=== PATIENT | female | born 1950 | race Hispanic/Latino ===

== ENCOUNTER 2017-01-15 04:42 | Inpatient (IN) | payer MEDICARE ==
--- NOTE | 2017-01-15 04:49 | ED PDOC ---
Psych Transfer Clearance - Clearance Statement Clearance Statement: Reviewed vital signs, lab results and transfer papers. Patient clinically stable for psychiatric admission.
[2017-01-15 05:02] VITALS: O2SAT 99
[2017-01-15] MEDS ORDERED: Magnesium Hydroxide Susp 30 ml UD PO PRN (05:19)
[2017-01-15] MEDS ORDERED: Alum-Mag Hydrox-Simethicone Susp (30 mL) PO PRN (05:19)
[2017-01-15] MEDS ORDERED: Bismuth Subsalicylate 262 mg/15 ml Sus (240 ml) PO PRN (05:19)
[2017-01-15 07:20] LABS: SQUAMOUS EPITHIAL 10 /hpf (0-5); URINE BACTERIA OCC (<OCC); URINE BILIRUBIN NEGATIVE (NEGATIVE); URINE BLOOD SMALL (NEGATIVE); URINE CLARITY SLIGHTY-CLOUDY (Clear); URINE COLOR YELLOW (YELLOW); URINE GLUCOSE (UA) NEG (Normal); URINE LEUKOCYTE ESTERASE LARGE Leu/uL (Negative); URINE NITRATE NEGATIVE (NEGATIVE); URINE PROTEIN NEGATIVE (NEGATIVE)
[2017-01-15 07:28] LABS: HEMOGLOBIN 9.9 g/dL (12.0-16.0); MEAN CELL VOLUME 82.1 fl (81.0-99.0); MEAN CORPUSCULAR HEMOGLOBIN 26.1 pg (27.0-31.0); MEAN CORPUSCULAR HGB CONC 31.9 g/dL (33.0-37.0); RBC 3.8 Mil/uL (3.80-5.20); RED CELL DISTRIBUTION WIDTH 14.2 % (11.5-14.5); WHITE BLOOD COUNT 6.7 K/uL (4.8-10.8)
[2017-01-15 07:53] LABS: ALB/GLOB RATIO 1.3 (1.0-2.1); ALBUMIN 4.1 g/dL (3.5-5.0); ALT/SGPT 31 U/L (9-52); AST/SGOT 43 U/L (14-36); BLOOD UREA NITROGEN 11 mg/dl (7-17); GFR AFRICAN-AMERICAN > 60; GFR NON-AFRICAN AMERICAN > 60
[2017-01-15 07:54] LABS: IRON 22 ug/dL (37-170)
[2017-01-15 08:07] LABS: % IRON SATURATION 5 % (20-55); TOTAL IRON BINDING CAPACITY 428 ug/dL (250-450)
[2017-01-15 08:11] LABS: T4 8.02 ug/dl (5.5-11.0)
[2017-01-15 08:25] LABS: FERRITIN 7.3 ng/mL
--- NOTE | 2017-01-15 12:01 | CP.PCM.CON ---
<Jay Patterson - Last Filed: 01/15/17 15:29> History of Present Illness - History of Present Illness History of Present Illness: CC:"I did not want to live" HPI: Patient is a 66 YO Female with no sig PMH presents to [facility] as a transfer from [facility] for suicide attempt. Per patient she was getting evicted from her home and the place that she was suppose to go to told her that they could no longer accommodate her, she also did not have anyone to take care of her pets. About 1/2 hour before the solar engineer came to remove her from her home she tied 3 bungee cord around her neck in an attempt to end her life. She loss consciousness. Patient says she was overwhelmed and did not know how to deal with her situation. pt was initially brought in to [facility] from where she was transferred to [facility]. In [facility] pt had multiple x-ray imaging studies of her cervical spine and soft tissues both of which were found unremarkable. In addition pt was given 1 PO dose of Bactrim. VS stable, afebrile, no leukocytosis. PMH: n/a Surgical hx: tonsillectomy FH: testicular cancer father Social hx: Lives at home, alone with cats, 7 pack year hx quit more then 10 years ago, Denies smoking and illicit use of drugs Home meds: Acetaminophen as needed for join pain Review of Systems - Constitutional Constitutional: absent: Chills, Fever - EENT Eyes: Dry Eye Nose/Mouth/Throat: absent: Facial Pain, Neck Pain - Cardiovascular Cardiovascular: absent: Chest Pain, Dyspnea, Palpitations - Respiratory Respiratory: absent: Dyspnea - Gastrointestinal Gastrointestinal: absent: Abdominal Pain, Constipation, Diarrhea - Genitourinary Genitourinary: absent: Urinary Frequency, Urinary Urgency Additional comments: No dysuria - Reproductive: Female Reproductive:Female: Post Menopausal - Musculoskeletal Musculoskeletal: absent: Joint Swelling, Muscle Weakness - Neurological Neurological: absent: Dizziness, Numbness, Headaches - Psychiatric Psychiatric: Anxiety, Depression, Homicidal Ideation - Endocrine Endocrine: absent: Fatigue, Palpitations, Polydipsia, Polyuria Past Patient History - Past Social History Smoking Status: 7 pack year hx quit more then 10years ago Alcohol: None Drugs: Denies Home Situation {Lives}: Alone - MUSCULOSKELETAL/RHEUMATOLOGICAL Hx Falls: Yes - PSYCHIATRIC Hx Substance Use: No - ANESTHESIA Hx Anesthesia: Yes Hx Anesthesia Reactions: No Meds Allergies/Adverse Reactions: Allergies Allergy/AdvReac Type Severity Reaction Status Date / Time No Known Allergies Allergy Verified 01/15/17 04:47 - Medications Medications: Current Medications Acetaminophen (Tylenol 325mg Tab) 650 mg PO Q4 PRN PRN Reason: Pain, moderate (4-7) Al Hydrox/Mg Hydrox/Simethicone (Maalox Plus 30 Ml) 30 ml PO Q4 PRN PRN Reason: Dyspepsia Bismuth Subsalicylate (Pepto-Bismol) 524 mg PO Q4 PRN PRN Reason: Diarrhea Diphenhydramine HCl (Benadryl) 50 mg PO HS PRN PRN Reason: Sleep Lorazepam (Ativan) 0.5 mg PO HS PRN PRN Reason: Insomnia Stop: 01/29/17 05:20 Lorazepam (Ativan) 0.5 mg PO Q6 PRN PRN Reason: Anixety/Agitation Stop: 01/29/17 05:20 Magnesium Hydroxide (Milk Of Magnesia) 30 ml PO HS PRN PRN Reason: Constipation Physical Exam - Head Exam Head Exam: ATRAUMATIC, NORMAL INSPECTION, NORMOCEPHALIC - Eye Exam Eye Exam: EOMI, Normal appearance - ENT Exam ENT Exam: Mucous Membranes Moist, Normal Exam - Neck Exam Neck exam: Positive for: Full Rom - Respiratory Exam Respiratory Exam: Clear to Auscultation Bilateral, NORMAL BREATHING PATTERN - Cardiovascular Exam Cardiovascular Exam: REGULAR RHYTHM, +S1, +S2 - GI/Abdominal Exam GI & Abdominal Exam: Normal Bowel Sounds, Soft. absent: Distended, Guarding, Rebound, Tenderness Additional comments: Obese abdomen - Extremities Exam Extremities exam: Positive for: full ROM, normal capillary refill, normal inspection, pedal pulses present. Negative for: joint swelling, pedal edema - Psychiatric Exam Psychiatric exam: Anxious, Depressed - Skin Skin Exam: Dry, Normal Color, Warm Results - Vital Signs Recent Vital Signs: Last Vital Signs Temp 97.7 F 01/15/17 06:00 Pulse 72 01/15/17 06:00 Resp 18 01/15/17 06:00 BP 172/97 H 01/15/17 06:00 Pulse Ox 99 01/15/17 04:45 - Labs Result Diagrams: 01/15/17 07:00 01/15/17 07:00 Labs: Laboratory Results - last 24 hr 01/15/17 01/15/17 01/15/17 06:53 07:00 07:00 WBC 6.7 RBC 3.80 Hgb 9.9 L Hct 31.2 L MCV 82.1 MCH 26.1 L MCHC 31.9 L RDW 14.2 Plt Count 293 Sodium Potassium Chloride Carbon Dioxide Anion Gap BUN Creatinine Est GFR ( Amer) Est GFR (Non-Af Amer) Random Glucose Calcium Iron TIBC % Saturation Ferritin Total Bilirubin AST ALT Alkaline Phosphatase Total Protein Albumin Globulin Albumin/Globulin Ratio Triglycerides 49 Cholesterol 178 LDL Cholesterol Direct 77 HDL Cholesterol 79 H Vitamin B12 Free T4 Thyroxine (T4) 8.02 TSH 3rd Generation 0.60 Urine Color Yellow Urine Clarity Slighty-cloudy Urine pH 6.0 Ur Specific Lynch 1.016 Urine Protein Negative Urine Glucose (UA) Neg Urine Ketones Trace Urine Blood Small Urine Nitrate Negative Urine Bilirubin Negative Urine Urobilinogen 4.0 H Ur Leukocyte Esterase Large Urine RBC (Auto) 16 H Urine Microscopic WBC 88 H Ur Squamous Epith Cells 10 H Urine Bacteria Occ H 01/15/17 01/15/17 01/15/17 07:00 07:00 07:00 WBC RBC Hgb Hct MCV MCH MCHC RDW Plt Count Sodium 142 Potassium 4.1 Chloride 108 H Carbon Dioxide 25 Anion Gap 13 BUN 11 Creatinine 0.9 Est GFR ( Amer) > 60 Est GFR (Non-Af Amer) > 60 Random Glucose 96 Calcium 9.0 Iron 22 L TIBC 428 % Saturation 5 L Ferritin 7.3 Total Bilirubin 0.7 AST 43 H ALT 31 Alkaline Phosphatase 82 Total Protein 7.2 Albumin 4.1 Globulin 3.1 Albumin/Globulin Ratio 1.3 Triglycerides Cholesterol LDL Cholesterol Direct HDL Cholesterol Vitamin B12 266 Free T4 1.04 Thyroxine (T4) TSH 3rd Generation Urine Color Urine Clarity Urine pH Ur Specific Lynch Urine Protein Urine Glucose (UA) Urine Ketones Urine Blood Urine Nitrate Urine Bilirubin Urine Urobilinogen Ur Leukocyte Esterase Urine RBC (Auto) Urine Microscopic WBC Ur Squamous Epith Cells Urine Bacteria Assessment & Plan - Assessment and Plan (Free Text) Assessment: Patient is a 66 YO Female with no sig PMH presents to [facility] as a transfer from [facility] for suicide attempt. Per patient she was getting evicted from her home and the place that she was suppose to go to told her that they could no longer accommodate her, she also did not have anyone to take care of her pets. About 1/2 hour before the solar engineer came to remove her from her home she tied 3 bungee cord around her neck in an attempt to end her life. She loss consciousness. Patient says she was overwhelmed and did not know how to deal with her situation. pt was initially brought in to [facility] from where she was transferred to [facility]. In [facility] pt had multiple x-ray imaging studies of her cervical spine and soft tissues both of which were found unremarkable. Pt does not have a PCP and last doctors visit was in 1994. In addition pt was given 1 PO dose of Bactrim. VS stable, afebrile, no leukocytosis. 1. Homicidal ideation -management per psychiatry 2. Depression -management per psychiatry 3. Asymptomatic UTI -1x PO dose of Bactrim per [facility] -continue Bactrim PO for 2x days 4. HTN -BP elevated to 172/92 -start lisinopril 5mg PO daily -continue to monitor 5. Asymptomatic Anemia -likely Iron deficiency anemia -hemodynamically stable -follow up outpatient <Nazanin Chang - Last Filed: 01/15/17 17:51> Meds - Medications Medications: Current Medications Acetaminophen (Tylenol 325mg Tab) 650 mg PO Q4 PRN PRN Reason: Pain, moderate (4-7) Al Hydrox/Mg Hydrox/Simethicone (Maalox Plus 30 Ml) 30 ml PO Q4 PRN PRN Reason: Dyspepsia Bismuth Subsalicylate (Pepto-Bismol) 524 mg PO Q4 PRN PRN Reason: Diarrhea Diphenhydramine HCl (Benadryl) 50 mg PO HS PRN PRN Reason: Sleep Lisinopril (Zestril) 5 mg PO DAILY BLANCA Lorazepam (Ativan) 0.5 mg PO HS PRN PRN Reason: Insomnia Stop: 01/29/17 05:20 Lorazepam (Ativan) 0.5 mg PO Q6 PRN PRN Reason: Anixety/Agitation Stop: 01/29/17 05:20 Magnesium Hydroxide (Milk Of Magnesia) 30 ml PO HS PRN PRN Reason: Constipation Mirtazapine (Remeron) 7.5 mg PO HS PRN PRN Reason: Insomnia Trimethoprim/Sulfamethoxazole (Bactrim Ds Tab) 1 tab PO Q12 BLANCA Stop: 01/17/17 21:01 Results - Vital Signs Recent Vital Signs: Last Vital Signs Temp 97.3 F L 01/15/17 15:33 Pulse 78 01/15/17 15:33 Resp 18 01/15/17 15:33 BP 122/78 01/15/17 15:33 Pulse Ox 99 01/15/17 04:45 - Labs Result Diagrams: 01/15/17 07:00 01/15/17 07:00 Labs: Laboratory Results - last 24 hr 01/15/17 01/15/17 01/15/17 06:53 07:00 07:00 WBC RBC Hgb Hct MCV MCH MCHC RDW Plt Count Sodium Potassium Chloride Carbon Dioxide Anion Gap BUN Creatinine Est GFR ( Amer) Est GFR (Non-Af Amer) Random Glucose Hemoglobin A1c 5.2 Calcium Iron TIBC % Saturation Ferritin Total Bilirubin AST ALT Alkaline Phosphatase Total Protein Albumin Globulin Albumin/Globulin Ratio Triglycerides 49 Cholesterol 178 LDL Cholesterol Direct 77 HDL Cholesterol 79 H Vitamin B12 Folate Free T4 Thyroxine (T4) 8.02 TSH 3rd Generation 0.60 Urine Color Yellow Urine Clarity Slighty-cloudy Urine pH 6.0 Ur Specific Lynch 1.016 Urine Protein Negative Urine Glucose (UA) Neg Urine Ketones Trace Urine Blood Small Urine Nitrate Negative Urine Bilirubin Negative Urine Urobilinogen 4.0 H Ur Leukocyte Esterase Large Urine RBC (Auto) 16 H Urine Microscopic WBC 88 H Ur Squamous Epith Cells 10 H Urine Bacteria Occ H 01/15/17 01/15/17 01/15/17 07:00 07:00 07:00 WBC 6.7 RBC 3.80 Hgb 9.9 L Hct 31.2 L MCV 82.1 MCH 26.1 L MCHC 31.9 L RDW 14.2 Plt Count 293 Sodium 142 Potassium 4.1 Chloride 108 H Carbon Dioxide 25 Anion Gap 13 BUN 11 Creatinine 0.9 Est GFR ( Amer) > 60 Est GFR (Non-Af Amer) > 60 Random Glucose 96 Hemoglobin A1c Calcium 9.0 Iron TIBC % Saturation Ferritin 7.3 Total Bilirubin 0.7 AST 43 H ALT 31 Alkaline Phosphatase 82 Total Protein 7.2 Albumin 4.1 Globulin 3.1 Albumin/Globulin Ratio 1.3 Triglycerides Cholesterol LDL Cholesterol Direct HDL Cholesterol Vitamin B12 266 Folate > 20.0 Free T4 1.04 Thyroxine (T4) TSH 3rd Generation Urine Color Urine Clarity Urine pH Ur Specific Lynch Urine Protein Urine Glucose (UA) Urine Ketones Urine Blood Urine Nitrate Urine Bilirubin Urine Urobilinogen Ur Leukocyte Esterase Urine RBC (Auto) Urine Microscopic WBC Ur Squamous Epith Cells Urine Bacteria 01/15/17 07:00 WBC RBC Hgb Hct MCV MCH MCHC RDW Plt Count Sodium Potassium Chloride Carbon Dioxide Anion Gap BUN Creatinine Est GFR ( Amer) Est GFR (Non-Af Amer) Random Glucose Hemoglobin A1c Calcium Iron 22 L TIBC 428 % Saturation 5 L Ferritin Total Bilirubin AST ALT Alkaline Phosphatase Total Protein Albumin Globulin Albumin/Globulin Ratio Triglycerides Cholesterol LDL Cholesterol Direct HDL Cholesterol Vitamin B12 Folate Free T4 Thyroxine (T4) TSH 3rd Generation Urine Color Urine Clarity Urine pH Ur Specific Lynch Urine Protein Urine Glucose (UA) Urine Ketones Urine Blood Urine Nitrate Urine Bilirubin Urine Urobilinogen Ur Leukocyte Esterase Urine RBC (Auto) Urine Microscopic WBC Ur Squamous Epith Cells Urine Bacteria Attending/Attestation - Attestation I have personally seen and examined this patient.: Yes I have fully participated in the care of the patient.: Yes I have reviewed all pertinent clinical information: Yes Notes (Text): 01/15/17 17:51 SEEN EXAMINED DISCUSSED WITH RESIDENT DR JAY PATTERSON. AGREE WITH FINDINGS AND PLAN ABOVE.
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
[2017-01-15 13:36] LABS: FOLATE > 20.0 ng/mL
[2017-01-15] MEDS: Tmp-Smz 800 mg-160 mg DS Tab PO SCH (21:17)
[2017-01-16] MEDS: Tmp-Smz 800 mg-160 mg DS Tab PO SCH ×2 (08:54→21:03)
--- NOTE | 2017-01-16 10:40 | PCM.PYCHPN ---
Psychiatric Progress Note - Psychiatric Progress Note Patient seen today, length of contact: discussed with team Patient Chief Complaint: i feel relaxed here Problems Identified/Issues Discussed: pt reports good sleep. continues to deny feeling depressed and she is still regretting her suicide attempt. she is anxious about where she can live when she is discharged. Medication Change: No Medical Record Reviewed: Yes Mental Status Examination - Cognitive Function Orientation: Person, Place, Situation, Time Memory: Intact Attention: WNL Concentration: WNL Association: WNL Fund of Knowledge: WN Decription of patient's judgement and insights: fair - Mood Mood: Anxious - Affect Affect: Broad - Speech Speech: Appropriate - Formal Thought Process Formal Thought Process: No Impairment Psychotic Thoughts and Behaviors: denies a/v hallucinations - Suicidal Ideation Suicidal Ideation: No - Homicidal Ideation Homicidal Ideation: No Goal/Treatment Plan - Goal/Treatment Plan Need for Continued Stay: Remain at risks for inpatient hospitalization, Discharge may exacerbated symptoms Progress Toward Problem(s) and Goals/Treatment Plan: adjustment disorder will continue to monitor and assess disposition planning Estimated Date of D/C: 01/18/17
[2017-01-17] MEDS: Tmp-Smz 800 mg-160 mg DS Tab PO SCH ×2 (08:22→21:07)
--- NOTE | 2017-01-17 12:20 | PCM.PYCHPN ---
Psychiatric Progress Note - Psychiatric Progress Note Patient seen today, length of contact: discussed with team Patient Chief Complaint: everyone is so nice here Problems Identified/Issues Discussed: pt states she still regrets her actions prior to admission. she is pleasant and cooperative with treatment here. she denies needing any medications. pt with anxiety about her living situation. Medication Change: No Medical Record Reviewed: Yes Mental Status Examination - Cognitive Function Orientation: Person, Place, Situation, Time Memory: Intact Attention: WNL Concentration: WNL Association: WNL Fund of Knowledge: [facility] Decription of patient's judgement and insights: fair - Mood Mood: Anxious - Affect Affect: Broad - Speech Speech: Appropriate - Formal Thought Process Formal Thought Process: No Impairment Psychotic Thoughts and Behaviors: denies a/v hallucinations - Suicidal Ideation Suicidal Ideation: No - Homicidal Ideation Homicidal Ideation: No Goal/Treatment Plan - Goal/Treatment Plan Need for Continued Stay: Remain at risks for inpatient hospitalization, Discharge may exacerbated symptoms Progress Toward Problem(s) and Goals/Treatment Plan: adjustment disorder will continue to monitor and assess disposition planning Estimated Date of D/C: 01/18/17
--- NOTE | 2017-01-18 08:52 | PCM.PYCHPN ---
Psychiatric Progress Note - Psychiatric Progress Note Patient seen today, length of contact: Patient evaluated, case discussed with team, chart reviewed Patient Chief Complaint: "I'm depressed." Problems Identified/Issues Discussed: Patient reports that she continues to feel depressed but denies ideation to harm herself. She feels depressed due to her lack of housing. She denied psychotic symptoms. She is observed in bed, resting. She reports that she feels fatigued, but has no other acute complaints. She is not agreeable to taking any psychotropic medication at this time, stating that she does not feel that she needs it. Medication Change: No Medical Record Reviewed: Yes Mental Status Examination - Cognitive Function Orientation: Person, Place, Situation, Time Memory: Intact Attention: WNL Concentration: WNL Association: WNL Fund of Knowledge: [facility] Decription of patient's judgement and insights: Fair I/J - Mood Mood: Depressed - Affect Affect: Constricted - Speech Speech: Appropriate - Formal Thought Process Formal Thought Process: No Impairment Psychotic Thoughts and Behaviors: NO AH/VH/paranoia - Suicidal Ideation Suicidal Ideation: No - Homicidal Ideation Homicidal Ideation: No Goal/Treatment Plan - Goal/Treatment Plan Need for Continued Stay: Remain at risks for inpatient hospitalization, Discharge may exacerbated symptoms Progress Toward Problem(s) and Goals/Treatment Plan: Adjustment Disorder; Patient continues to report depressive symptoms, but denies ideation to harm herself. She is not agreeable to taking any psychotropic medications at this time. -Continue to monitor the patient for safety -Patient refusing antidepressants at this time -Individual and group therapy -Disposition planning Estimated Date of D/C: 01/22/17
--- NOTE | 2017-01-19 09:48 | PCM.PYCHPN ---
Psychiatric Progress Note - Psychiatric Progress Note Patient seen today, length of contact: Patient evaluated, case discussed with team, chart reviewed, 35 min Patient Chief Complaint: "I'm okay." Problems Identified/Issues Discussed: Patient denies ideation to harm herself. She reports that she feels stressed about her lack of housing, but otherwise has no acute complaints. She denied psychotic symptoms. She is not agreeable to taking any psychotropic medication at this time, stating that she does not feel that she needs it, because it would change her social stressors/lack of housing. She has improved eating and sleeping. Her affect is bright on interview. Medication Change: No Medical Record Reviewed: Yes Mental Status Examination - Cognitive Function Orientation: Person, Place, Situation, Time Memory: Intact Attention: WNL Concentration: WNL Association: WNL Fund of Knowledge: [facility] Decription of patient's judgement and insights: Fair I/J - Mood Mood: Depressed - Affect Affect: Broad - Speech Speech: Appropriate - Formal Thought Process Formal Thought Process: No Impairment Psychotic Thoughts and Behaviors: NO AH/VH/paranoia - Suicidal Ideation Suicidal Ideation: No - Homicidal Ideation Homicidal Ideation: No Goal/Treatment Plan - Goal/Treatment Plan Need for Continued Stay: Remain at risks for inpatient hospitalization, Discharge may exacerbated symptoms Progress Toward Problem(s) and Goals/Treatment Plan: Adjustment Disorder; now improving clinically. Patient not agreeable to taking antidepressants at this time. -Patient refusing antidepressants at this time -Individual and group therapy -Disposition planning- likely discharge tomorrow Estimated Date of D/C: 01/20/17
--- NOTE | 2017-01-20 09:51 | PCM.PYCHPN ---
Psychiatric Progress Note - Psychiatric Progress Note Patient seen today, length of contact: Patient evaluated, case discussed with team, chart reviewed, 35 min Patient Chief Complaint: "I'm okay." Problems Identified/Issues Discussed: Patient denies ideation to harm herself, but is reporting feeling more depressed today. She reports that she feels stressed about her lack of housing. She denied psychotic symptoms. She is not agreeable to taking any psychotropic medication at this time, stating that she does not feel that she needs it, because it would change her social stressors/lack of housing. Medication Change: No Medical Record Reviewed: Yes Mental Status Examination - Cognitive Function Orientation: Person, Place, Situation, Time Memory: Intact Attention: WNL Concentration: WNL Association: WNL Fund of Knowledge: [facility] Decription of patient's judgement and insights: Fair I/J - Mood Mood: Depressed - Affect Affect: Constricted - Speech Speech: Appropriate - Formal Thought Process Formal Thought Process: No Impairment Psychotic Thoughts and Behaviors: NO AH/VH/paranoia - Suicidal Ideation Suicidal Ideation: No - Homicidal Ideation Homicidal Ideation: No Goal/Treatment Plan - Goal/Treatment Plan Need for Continued Stay: Remain at risks for inpatient hospitalization, Discharge may exacerbated symptoms Progress Toward Problem(s) and Goals/Treatment Plan: Adjustment Disorder; now improving clinically, but still reporting some depressive symptoms. Will monitor for safety an additional day due to continued depressive symptoms and depressed affect. Patient not agreeable to taking antidepressants at this time. -Patient refusing antidepressants at this time -Individual and group therapy -Disposition planning- possible discharge tomorrow Estimated Date of D/C: 01/21/17
--- NOTE | 2017-01-21 11:28 | PCM.PYCHPN ---
Psychiatric Progress Note - Psychiatric Progress Note Patient seen today, length of contact: Patient evaluated, case discussed with team, chart reviewed, 35 min Patient Chief Complaint: "I'm okay." Problems Identified/Issues Discussed: Patient denies ideation to harm herself, but reports continued feelings of depression. She reports that she feels stressed about her lack of housing. She continues to be not agreeable to taking antidepressants. Medication Change: No Medical Record Reviewed: Yes Mental Status Examination - Cognitive Function Orientation: Person, Place, Situation, Time Memory: Intact Attention: WNL Concentration: WNL Association: WNL Fund of Knowledge: [facility] Decription of patient's judgement and insights: Fair I/J - Mood Mood: Depressed - Affect Affect: Constricted - Speech Speech: Appropriate - Formal Thought Process Formal Thought Process: No Impairment Psychotic Thoughts and Behaviors: NO AH/VH/paranoia - Suicidal Ideation Suicidal Ideation: No - Homicidal Ideation Homicidal Ideation: No Goal/Treatment Plan - Goal/Treatment Plan Need for Continued Stay: Remain at risks for inpatient hospitalization, Discharge may exacerbated symptoms Progress Toward Problem(s) and Goals/Treatment Plan: Adjustment Disorder; now improving clinically, but still reporting some depressive symptoms. Will monitor for safety an additional day due to continued depressive symptoms and depressed affect. Patient not agreeable to taking antidepressants at this time. -Patient refusing antidepressants at this time -Individual and group therapy -Disposition planning- possible discharge tomorrow if patient improves clinically Estimated Date of D/C: 01/22/17
--- NOTE | 2017-01-22 13:13 | PCM.PYCHPN ---
Psychiatric Progress Note - Psychiatric Progress Note Patient seen today, length of contact: Patient evaluated, case discussed with team, chart reviewed, 35 min Patient Chief Complaint: "I'm okay." Problems Identified/Issues Discussed: No events overnight. Patient denies ideation to harm herself, but reports continued feelings of depression. She reports that she feels stressed about her lack of housing. She continues to be not agreeable to taking antidepressants. Medication Change: No Medical Record Reviewed: Yes Mental Status Examination - Cognitive Function Orientation: Person, Place, Situation, Time Memory: Intact Attention: WNL Concentration: WNL Association: WNL Fund of Knowledge: [facility] Decription of patient's judgement and insights: Fair I/J - Mood Mood: Depressed - Affect Affect: Constricted - Speech Speech: Appropriate - Formal Thought Process Formal Thought Process: No Impairment Psychotic Thoughts and Behaviors: NO AH/VH/paranoia - Suicidal Ideation Suicidal Ideation: No - Homicidal Ideation Homicidal Ideation: No Goal/Treatment Plan - Goal/Treatment Plan Need for Continued Stay: Remain at risks for inpatient hospitalization, Discharge may exacerbated symptoms Progress Toward Problem(s) and Goals/Treatment Plan: Adjustment Disorder; now improving clinically, but still reporting some depressive symptoms. Will continue to monitor for safety due to continued depressive symptoms and depressed affect. Patient not agreeable to taking antidepressants at this time. -Patient refusing antidepressants at this time -Individual and group therapy -Disposition planning- possible [facility] placement Estimated Date of D/C: 01/25/17
[2017-01-22] MEDS ORDERED: Tuberculin 5 Units/0.1 ml Inj ID ONE (16:33)
--- NOTE | 2017-01-23 08:26 | PCM.PYCHPN ---
Psychiatric Progress Note - Psychiatric Progress Note Patient seen today, length of contact: Patient evaluated, case discussed with team, chart reviewed, 35 min Patient Chief Complaint: "I'm okay." Problems Identified/Issues Discussed: No events overnight. Patient denies ideation to harm herself. She reports that her mood is improving, but she feels stressed about her lack of housing. She continues to be not agreeable to taking antidepressants. Medication Change: No Medical Record Reviewed: Yes Mental Status Examination - Cognitive Function Orientation: Person, Place, Situation, Time Memory: Intact Attention: WNL Concentration: WNL Association: WNL Fund of Knowledge: [facility] Decription of patient's judgement and insights: Fair I/J - Mood Mood: Depressed - Affect Affect: Constricted - Speech Speech: Appropriate - Formal Thought Process Formal Thought Process: No Impairment Psychotic Thoughts and Behaviors: NO AH/VH/paranoia - Suicidal Ideation Suicidal Ideation: No - Homicidal Ideation Homicidal Ideation: No Goal/Treatment Plan - Goal/Treatment Plan Need for Continued Stay: Remain at risks for inpatient hospitalization, Discharge may exacerbated symptoms Progress Toward Problem(s) and Goals/Treatment Plan: Adjustment Disorder; now improving clinically, but still reporting some depressive symptoms. Will continue to monitor for safety due to continued depressive symptoms and depressed affect. Patient not agreeable to taking antidepressants at this time. -Patient refusing antidepressants at this time -Individual and group therapy -Disposition planning- possible detention placement Estimated Date of D/C: 01/25/17
--- NOTE | 2017-01-24 08:36 | PCM.PYCHPN ---
Psychiatric Progress Note - Psychiatric Progress Note Patient seen today, length of contact: Patient evaluated, case discussed with team, chart reviewed, 35 min Patient Chief Complaint: "I'm okay." Problems Identified/Issues Discussed: No significant events. Patient denies ideation to harm herself. She reports that her mood is improving, but she feels stressed about her lack of housing. She continues to be not agreeable to taking antidepressants. Medication Change: No Medical Record Reviewed: Yes Mental Status Examination - Cognitive Function Orientation: Person, Place, Situation, Time Memory: Intact Attention: WNL Concentration: WNL Association: WNL Fund of Knowledge: [facility] Decription of patient's judgement and insights: Fair I/J - Mood Mood: Depressed - Affect Affect: Constricted - Speech Speech: Appropriate - Formal Thought Process Formal Thought Process: No Impairment Psychotic Thoughts and Behaviors: NO AH/VH/paranoia - Suicidal Ideation Suicidal Ideation: No - Homicidal Ideation Homicidal Ideation: No Goal/Treatment Plan - Goal/Treatment Plan Need for Continued Stay: Remain at risks for inpatient hospitalization, Discharge may exacerbated symptoms Progress Toward Problem(s) and Goals/Treatment Plan: Adjustment Disorder; now improving clinically, but still reporting some depressive symptoms. Will continue to monitor for safety due to continued depressive symptoms and depressed affect. Patient not agreeable to taking antidepressants at this time. -Patient refusing antidepressants at this time -Individual and group therapy -Disposition planning- possible longterm placement Estimated Date of D/C: 01/25/17
[2017-01-25 05:47] VITALS: BP 135/76; PULSE 75; RESP 18; TEMP 97.2
--- NOTE | 2017-01-25 09:26 | PCM.PYCHDC ---
Mental Status Examination - Mental Status Examination Orientation: Person, Place, Situation, Time Memory: Intact Mood: Neutral Affect: Broad Speech: Appropriate Attention: WNL Concentration: WNL Association: WNL Fund of Knowledge: WNL Formal Thought Process: No Impairment Description of patient's judgement and insight: Fair I/J Psychotic Thoughts and Behaviors: NO AH/VH/paranoia Suicidal Ideation: No Current Homicidal Ideation?: No Discharge Summary - Discharge Note Reason for Hospitalization: As per initial HPI: pt has no prior psychiatric history. she is and living alone in [facility]. she was isolated there and in debt after losing her job. her house was foreclosed on yesterday and her plans to have her animals cared for and to have a rental place feel thorough. about 1/2 hour before the civil engineering drafter came to remove her from her home she tied bungee cord around her neck in an attempt to end her life. she states she left a not regarding the ages of her cats and how to care for them. she reported having the intent to when she tried to strangle herself and she reports she passed out. she denies any psychotic symptoms. she denies feeling depressed currently. she denies any change in sleep/appetite. she reports she has no contact with her daughter and few supports. 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 she gets about 1100 month social security. Consultations:: List each consultation separately and include: 1. Reason for request. 2. Findings. 3. Follow-up Consultations: Medicine consult Summary of Hospital Course include:: 1. Description of specific treatment plan utilized for patients during their course of treatmen. 2. Summarize the time- course for resolution of acute symptoms and/or regressed behaviors. 3. Describe issues identified and worked on during hospitalization. 4. Describe medication utilized. 5. Describe medical problems identified and treated. 6. Reassessment of suicide risk Summary of Hospital Course: Patient admitted to the psychiatry unit. She was treated with individual and group therapy. Patient refused all medical and psychotropic medications. She was monitored for safety until her depressive symptoms improved. She is no longer an acute danger to herself. - Final Diagnosis (DSM 5) Condition upon Discharge: FAIR DSM 5: Adjustment Disorder Disposition: HOME/ ROUTINE Follow-up Treatment Plan: Adjustment Disorder; now improved clinically. -Discharge to residential with outpatient follow-up - Smoking Cessation Smoking Cessation Medication prescribed: No Reason for not providing: Not indicated - Antipsychotic Medications Pt discharged on 2 or more routine antipsychotic medications: No
== END 2017-01-25 14:00 | disposition home or self-care (01) | DRG 882 ==
LOC: H.ER 04:42 → H.STEP 04:49
PROVIDERS: ADMIT Psychiatry & Neurology Psychiatry; ATTEND Psychiatry & Neurology Psychiatry
PROC: GZ51ZZZ Individual Psychotherapy, Behavioral (ICD-10-PCS; principal; 2017-01-15)
DX: F43.22 Adjustment disorder with anxiety (principal); R45.850 Homicidal ideations; I10 Essential (primary) hypertension; N39.0 Urinary tract infection, site not specified; D50.9 Iron deficiency anemia, unspecified; F32.9 Major depressive disorder, single episode, unspecified; Z59.0 Homelessness; R53.83 Other fatigue